=== PATIENT | female | born 1945 | race Hispanic/Latino ===

== ENCOUNTER 2023-02-20 13:51 | Emergency (ER) | payer MEDICARE ==
[~2023-02-20] VITALS: Ht 154.9 cm; Wt 54.4 kg
[2023-02-20] MEDS ORDERED: 0.9%NACL 1000ML 1,000 ML IV SCH (14:00)
[2023-02-20] MEDS ORDERED: ONDANSETRON 4MG INJ IV SCH (14:00)
[2023-02-20 14:17] LABS: BASOPHILS % (AUTO) 0.6 % (0.0-5.0); EOSINOPHILS % (AUTO) 1.1 % (0.0-8.0); HEMATOCRIT 31.2 % (36-48); LYMPHOCYTES % (AUTO) 31.9 % (21.0-51.0); MEAN CORPUSCULAR HGB CONC 33.3 g/dL (32.0-36.0); MEAN CORPUSCULAR VOLUME 93.1 fL (79-99); MONOCYTES % (AUTO) 8.5 % (3.0-13.0); NEUTROPHILS % (AUTO) 57.5 % (40.0-77.0); PLATELET COUNT (AUTO) 408 K/uL (130-400); RED BLOOD CELL COUNT(AUTO) 3.35 MIL/uL (4.00-5.50); RED CELL DISTRIBUTION WIDTH 15.7 % (11.0-15.5)
[2023-02-20 14:40] LABS: CREATININE 0.9 mg/dL (0.5-1.5); POTASSIUM 3.9 mmol/L (3.5-5.1)
[2023-02-20 14:45] LABS: ALBUMIN 2.2 g/dL (3.5-5.0); TOTAL PROTEIN, SERUM 6.4 g/dL (6.0-8.3)
[2023-02-20] MEDS ORDERED: IOHEXOL-350 75 ML VIAL IV ONE (14:54)
[2023-02-20 15:21] LABS: B-TYPE NATRIURETIC PEPTIDE 10 pg/mL (0-100)
[2023-02-20] MEDS ORDERED: 0.9%NACL 1000ML 1,000 ML IV ONE (15:52)
[2023-02-20] MEDS ORDERED: ONDANSETRON 4MG INJ ONE (15:52)
[2023-02-20 15:56] LABS: APPEARANCE,URINE CLEAR (CLEAR); BILIRUBIN,URINE NEGATIVE (NEGATIVE); COLOR,URINE LIGHT-YELLOW (YELLOW); GLUCOSE, URINE (UA) NEGATIVE (NEGATIVE); KETONES,URINE NEGATIVE (NEGATIVE); LEUKOCYTE ESTERASE ,URINE 25 Leu/uL (NEGATIVE); NITRATE,URINE NEGATIVE (NEGATIVE); OCCULT BLOOD,URINE NEGATIVE (NEGATIVE); PROTEIN,URINE 30 mg/dL (NEGATIVE); UROBILINOGEN,URINE 0.2 mg/dL (0.2-1.0)
[2023-02-20 16:00] LABS: BACTERIA,URINE MOD /HPF (None Seen); MUCUS,URINE RARE LPF (None Seen); SQUAMOUS EPITHELIAL CELL,UR RARE /HPF (0-2)
[2023-02-20] MEDS ORDERED: SULF1TAB42 PO (16:44)
[2023-02-20] MEDS ORDERED: MAGN300C PO (16:44)
[2023-02-20] MEDS ORDERED: CEFTRIAXONE 1G VIAL IVPB ONE (17:00)
[2023-02-20] MEDS ORDERED: MAGNESIUM 4GM PREMIX 100ML 100 ML IV PRN (17:00)
[2023-02-20 21:45] VITALS: BP 120/50
== END 2023-02-20 21:52 | disposition home or self-care (01) ==
LOC: EDH 13:51
DX: N39.0 Urinary tract infection, site not specified (principal); E83.42 Hypomagnesemia; F03.90 Unspecified dementia, unspecified severity, without behavioral disturbance, psychotic disturbance, mood disturbance, and anxiety; Z90.49 Acquired absence of other specified parts of digestive tract
CPT/HCPCS: 99285; 70450; 96365; 71045; 96367; 96366; 96375; 83735; 84484; 80053; 83880; 83690; 85025; 87088; 81001; 36415; 74177; 93005; J7030; J0696; J2405; J3475; Q9967